=== PATIENT | female | born 1990 | race Caucasian/White ===

== ENCOUNTER 2019-10-12 11:03 | Emergency (ER) | payer SELFPAY ==
[2019-10-12 11:15] VITALS: BP 135/90; PULSE 86; RESP 16; TEMP 36.7; O2SAT 98; BMI 19.5
--- NOTE | 2019-10-12 11:37 | ED_ITS ---
HPI - Dental/Oral General: Chief complaint: Dental/Oral Stated complaint: DENTAL PAIN Time Seen by Provider: 10/12/19 11:15 History of Present Illness: HPI Narrative: Patient is a 29-year-old female who comes to the ED with dental pain. Patient says she has had this kind of dental pain and swelling in the past. This recent occurrence started a day ago and she now has swelling on the left side of her face. She rates the pain 7 out of 10. She has been taking Tylenol and Motrin to try to help with pain. She is currently looking for a dentist. Denies any swelling that is causing any obstruction in breathing. Associated symptoms: Denies fever(s) or painful swallowing Review of Systems Const: Denies: fever, chills or fatigue Eyes: Denies: change in vision or eye discomfort ENMT: Reports: dental pain; Denies: throat pain, painful swallowing, nasal discharge or nasal congestion Card: Denies: chest pain, palpitations, edema, swelling of feet/ankles, shortness of breath on exertion or shortness of breath when lying down Resp: Denies: shortness of breath, productive cough or non-productive cough GI: Denies: abdominal pain, nausea, vomiting, diarrhea, constipation or blood in stool : Denies: flank pain, painful urination or blood in urine Musc: Denies: neck pain, back pain or extremity swelling Skin/Breast: Denies: rash or new lesion Neuro: Denies: headache, numbness in extremities or weakness in extremities PFS ED PFSH: Social History Smoking and tobacco status: current every day smoker Physical Exam Const: COMMON NORMALS: no apparent distress, oriented x3, healthy appearing and alert GENERAL APPEARANCE: cooperative and comfortable HENMT: COMMON NORMALS: normocephalic HEAD & SCALP: normocephalic FACE & SINUS: facial edema on the left maxilla and facial tenderness on the left maxilla MOUTH: oral and palatal mucosa normal TEETH & GINGIVA: Yes caries (Patient had extensive decay on tooth #13.), Yes gingiva abnormal edematous (Upper left maxillary jaw. Around teeth numbers 13 through 16.) and tender (Left side upper maxillary jaw. Swelling around teeth numbers 13 through 16.) and Yes poor dentition THROAT: posterior oropharynx normal and uvula midline Eye: COMMON NORMALS: PERRL PUPIL: Yes PERRL Neck/C-Spine: COMMON NORMALS: supple GENERAL: Yes normal visual inspection Resp: COMMON NORMALS: normal respiratory effort, no retractions, no use of accessory muscles and clear to auscultation bilaterally AUSCULTATION: clear to auscultation bilaterally Cardio: COMMON NORMALS: regular rate, regular rhythm, S1 normal heart sound, S2 normal heart sound, no gallops, no clicks, no murmurs and peripheral pulses 2+ throughout RATE: regular rate RHYTHM: regular rhythm HEART SOUNDS: S1 normal and S2 normal PERIPHERAL PULSES: pulses 2+ throughout GI: COMMON NORMALS: normal to inspection, nondistended, normoactive bowel sounds, soft to palpation, non-tender and no masses PALPATION: Yes soft : COMMON NORMALS: Yes no CVA tenderness BLADDER/KIDNEY EXAM: Yes no CVA tenderness Back/Pelvis: COMMON NORMALS: no CVA tenderness Extremity: COMMON NORMALS: normal to inspection Neuro: COMMON NORMALS: oriented x3 and moves all extremities SENSORIUM/ORIENTATION: Yes alert Skin: COMMON NORMALS: no rashes or lesions noted GENERAL SKIN EXAM: no rashes or lesions noted and dry skin Course Vital Signs: Vital signs: Vital Signs Temperature 98.1 F 10/12/19 11:15 Pulse Rate 86 10/12/19 11:15 Respiratory Rate 16 10/12/19 11:15 Blood Pressure 135/90 10/12/19 11:15 Pulse Oximetry 98 10/12/19 11:15 MDM - Dental/Oral MDM Narrative: Medical decision making narrative: Patient is a 29-year-old female who comes to the ED with dental pain. Physical exam showed some gingival swelling and tenderness on the upper left maxillary jaw. Facial tenderness and swelling on left maxillary. Dental caries seen in teeth numbers 13 through 16. Patient was given a dose of clindamycin and hydrocodone while here in the ED. patient was sent home with a prescription for clindamycin and told to take full course of antibiotic as prescribed. I informed her to take ibuprofen for pain. She can return to the ED if swelling and symptoms worsen after 3 days plus on antibiotic treatment. Patient is looking for dentist. Patient understood and agreed with plan. Discharge Plan Discharge Patient Disposition: Home, Self-Care Clinical Impression: Pain due to dental caries Condition: Stable Prescriptions: New clindamycin HCl 150 mg capsule 300 mg PO Q6H 7 Days Qty: 56 RF: 0 Discharge Orders: Discharge Order (Routine); Ordered 10/12/19 Ordered By: Lc Garcia Discharge Diet: Regular Discharge Activity: Resume usual activity Patient Instructions: Dental Caries (ED) Activity Restrictions/Additional Instructions: Follow-up with a dentist as soon as possible. Take full course of antibiotics as prescribed. Take [id number] ibuprofen or Tylenol as needed for pain. Drink plenty fluids and stay hydrated. You can return to ED for reevaluation if swelling and symptoms worsen after 3 days of antibiotics. Discharge Date/Time: 10/12/19 12:20 Coding Level of Care Code ED Technician Automatic for Astrid Fwjessica Exam Comprehensive
[2019-10-12] MEDS: clindamycin 150 mg Capsule 300 MG PO (12:18)
[2019-10-12] MEDS: HYDROcodone-acetaminophen 7.5-325 mg Tablet 1 TAB PO (12:19)
== END 2019-10-12 12:20 | disposition home or self-care (01) ==
PROVIDERS: Emergency Provider Physician Assistant
DX: K02.9 Dental caries, unspecified (principal); F17.210 Nicotine dependence, cigarettes, uncomplicated
CPT/HCPCS: 12345; 99281; 99283